=== PATIENT | female | born 1995 | race Caucasian/White ===

== ENCOUNTER 2018-04-28 13:45 | Emergency (ER) | payer MEDICAID ==
[~2018-04-28] VITALS: Ht 157.5 cm; Wt 58.2 kg
[2018-04-28 14:10] VITALS: Ht 157.5 cm; Wt 58.2 kg
[2018-04-28] MEDS ORDERED: ZOFRAN4 MG PO (14:11)
[2018-04-28 16:03] LABS: APPEARANCE HAZY (CLEAR); BILIRUBIN NEGATIVE (NEGATIVE); COLOR YELLOW (YELLOW); GLUCOSE NEGATIVE (NEGATIVE); KETONE NEGATIVE (NEGATIVE); NITRITE NEGATIVE (NEGATIVE); PROTEIN NEGATIVE (NEGATIVE); SPECIFIC GRAVITY 1.015 (1.005-1.020); UROBILINOGEN NORMAL (NORMAL)
[2018-04-28 16:05] LABS: BACTERIA FEW /hpf (NONE SEEN); EPITHELIAL CELLS 0-5 /hpf (0-5); RED CELLS - URINE OCC /hpf (0-5); WHITE CELLS - URINE 0-5 /hpf (0-5)
[2018-04-28] MEDS ORDERED: ZOFRAN ODT4 MG/UDTAB PO (17:47)
[2018-04-28] MEDS ORDERED: BUTALB-APAP-CA1 EACH PO (17:48)
[2018-04-28 18:09] VITALS: BP 123/89
== END 2018-04-28 18:11 | disposition home or self-care (01) ==
LOC: D.ER 13:45
PROVIDERS: Family Medicine
DX: O26.891 Other specified pregnancy related conditions, first trimester (principal); Z3A.00 Weeks of gestation of pregnancy not specified; G43.909 Migraine, unspecified, not intractable, without status migrainosus

== ENCOUNTER → 2018-05-07 14:09 | Outpatient (CLI) | payer MEDICAID ==
[2018-04-28 14:10] VITALS: BMI 23.4
[~2018-05-07 14:09] MED LIST: BUTALB-APAP-CA1 EACH PO; ZOFRAN ODT4 MG/UDTAB PO; ZOFRAN4 MG PO
== END | disposition home or self-care (01) ==
LOC: D.LDO 14:09
DX: O26.899 Other specified pregnancy related conditions, unspecified trimester (principal); Z3A.00 Weeks of gestation of pregnancy not specified; G43.909 Migraine, unspecified, not intractable, without status migrainosus

== ENCOUNTER → 2018-07-03 14:13 | Outpatient (CLI) | payer SELFPAY ==
[2018-04-28 14:10] VITALS: BMI 23.4
[2018-07-03 15:02] LABS: UDS - AMPHET NEGATIVE QUAL (NEGATIVE); UDS - BARB NEGATIVE QUAL (NEGATIVE); UDS - BENZO NEGATIVE QUAL (NEGATIVE); UDS - COCAINE NEGATIVE QUAL (NEGATIVE); UDS - OPIATE NEGATIVE QUAL (NEGATIVE); UDS - PCP NEGATIVE QUAL (NEGATIVE); UDS - THC NEGATIVE QUAL (NEGATIVE)
[2018-07-03 15:15] LABS: APPEARANCE CLEAR (CLEAR); BILIRUBIN NEGATIVE (NEGATIVE); COLOR YELLOW (YELLOW); GLUCOSE NEGATIVE (NEGATIVE); KETONE NEGATIVE (NEGATIVE); NITRITE NEGATIVE (NEGATIVE); PROTEIN NEGATIVE (NEGATIVE); UROBILINOGEN NORMAL (NORMAL)
[2018-07-03 15:17] LABS: BACTERIA FEW /hpf (NONE SEEN); EPITHELIAL CELLS OCC /hpf (0-5); WHITE CELLS - URINE OCC /hpf (0-5)
== END | disposition home or self-care (01) ==
LOC: D.LDO 14:13
PROVIDERS: Obstetrics & Gynecology
DX: O26.852 Spotting complicating pregnancy, second trimester (principal); Z3A.23 23 weeks gestation of pregnancy; M54.5 Low back pain

== ENCOUNTER → 2018-09-30 10:29 | Outpatient (CLI) | payer MEDICAID ==
[2018-04-28 14:10] VITALS: BMI 23.4
[~2018-09-30 10:29] MED LIST changes: +ALBUTEROL SULF8.5 GM INH; +AMBIEN10 MG PO; +FAMOTIDINE10 MG PO; +REGLAN5 MG PO; +TYLENOL W/CODEI1 TAB PO
[2018-09-30 11:42] LABS: APPEARANCE CLEAR (CLEAR); BILIRUBIN NEGATIVE (NEGATIVE); COLOR YELLOW (YELLOW); GLUCOSE NEGATIVE (NEGATIVE); KETONE NEGATIVE (NEGATIVE); NITRITE NEGATIVE (NEGATIVE); PROTEIN NEGATIVE (NEGATIVE); UROBILINOGEN NORMAL (NORMAL)
[2018-10-22 00:35] VITALS: BMI 30.1
== END | disposition home or self-care (01) ==
LOC: D.LDO 10:29
PROVIDERS: Obstetrics & Gynecology
DX: O62.9 Abnormality of forces of labor, unspecified (principal); Z3A.35 35 weeks gestation of pregnancy

== ENCOUNTER 2018-10-21 21:21 | Inpatient (IN) | payer MEDICAID ==
[~2018-10-21] VITALS: Ht 157.5 cm; Wt 74.8 kg
[~2018-10-21 21:21] MED LIST changes: -ALBUTEROL SULF8.5 GM INH; -AMBIEN10 MG PO; -FAMOTIDINE10 MG PO; -REGLAN5 MG PO
[2018-10-21 22:22] LABS: APPEARANCE CLEAR (CLEAR); BILIRUBIN NEGATIVE (NEGATIVE); COLOR YELLOW (YELLOW); GLUCOSE NEGATIVE (NEGATIVE); KETONE MODERATE mg/dL (NEGATIVE); NITRITE NEGATIVE (NEGATIVE); PROTEIN NEGATIVE (NEGATIVE); SPECIFIC GRAVITY 1.015 (1.005-1.020); UROBILINOGEN NORMAL (NORMAL)
[2018-10-21 22:23] LABS: EPITHELIAL CELLS 0-5 /hpf (0-5); WHITE CELLS - URINE 0-5 /hpf (0-5)
[2018-10-21 22:24] LABS: BACTERIA FEW /hpf (NONE SEEN)
[2018-10-21 23:40] LABS: UDS - AMPHET NEGATIVE QUAL (NEGATIVE); UDS - BARB POSITIVE QUAL (NEGATIVE); UDS - BENZO NEGATIVE QUAL (NEGATIVE); UDS - COCAINE NEGATIVE QUAL (NEGATIVE); UDS - OPIATE POSITIVE QUAL (NEGATIVE); UDS - PCP NEGATIVE QUAL (NEGATIVE); UDS - THC NEGATIVE QUAL (NEGATIVE)
[2018-10-21 23:56] LABS: HEMATOCRIT 34.4 % (36.0-48.0); HEMOGLOBIN 12.1 g/dL (12-16); MCH 30.9 pg (26.0-34.0); MCHC 35.2 g/dL (31.0-37.0); RBC 3.91 10x6/uL (4.00-5.40); RDW 13.4 % (11.5-14.5)
[2018-10-22] MEDS ORDERED: ALBUTEROL SULF8.5 GM INH (00:02)
[2018-10-22] MEDS ORDERED: AMBIEN10 MG PO (00:02)
[2018-10-22] MEDS ORDERED: REGLAN5 MG PO (00:04)
[2018-10-22] MEDS ORDERED: FAMOTIDINE10 MG PO (00:05)
[2018-10-22 00:35] VITALS: Ht 157.5 cm; Wt 74.8 kg
--- NOTE | 2018-10-22 17:44 | NUR ---
pt rings call light requesting to ambulate to br. this rn to room. pt reports all feeling has returned to lower extremeties. pt has full rom and control of left and right leg. pt oob w/out assistance and able to ambulate to br. pt able to void approx 100ml urine. no clots noted. pt requesting pain medication at this time.
--- NOTE | 2018-10-22 17:56 | NUR ---
report of pt's request for additional pain medication given to primary nurse maritza scott rn. jose plans to speak with md head of loss prevention for additional pain medication. warm blanket provided for pt to place on her abd at this time. no further needs at this time.
--- NOTE | 2018-10-22 18:30 | NUR ---
PT SITTING UP IN BED. VISITS WITH FAMILY. STATES WARM BLANKET HELPED WITH ABDOMINAL CRAMPING.
--- NOTE | 2018-10-22 19:15 | NUR ---
PT CALLS ON BATHROOM EMERGENCY LIGHT. THIS NURSE TO ROOM. PT SITTING ON COMMODE. PT MOTHER LEAVES BATHROOM AT THIS TIME. PT STATES "I FEEL LIKE I NEED TO POOP AND I CAN'T". STATES "IT STINGS WHEN I TRY TO GO". PT ENCOURAGED NOT TO STRAIN. PT STATES LAST BM FRIDAY. STATES HAS HAD PROBLEMS WITH CONSTIPATION. PT STATES VOIDED WITHOUT DIFFICULTY. PT STATES ABDOMINAL CRAMPING IMPROVED WITH WARM BLANKET TO ABDOMEN. PT BACK TO BED. PT PROVIDED WITH GRAPE JUICE AND ICE WATER. PT MOTHER REQUESTS DR SUN BE CALLED ABOUT GIVING PATIENT PAIN MEDICATION. PT AND MOTHER INFORMED THAT DR STRONG HYDRAULIC CHAIR ASSEMBLER AND WILL NOTIFY HIM OF PT MOTHER REQUEST.
--- NOTE | 2018-10-22 19:41 | NUR ---
PT BABY AT THIS TIME, INFORMED PT THAT I WILL COME BACK SHORTLY TO DO ASSESSMENT, PT VERBALIZES UNDERSTANDING, ADM TYLENOL AND TORADOL PER MD ORDERS, SEE EMAR, PT DENIES FURTHER NEEDS, FAMILY AT BEDSIDE
[2018-10-22 20:20] VITALS: BP 106/56
--- NOTE | 2018-10-22 20:20 | NUR ---
ASSESSMENT PER FLOW SHEET, VS OBTAINED, FF, ML, U/1, LIGHT BLEEDING NOTED WITH NO CLOTS, PT REPORTS FLATUS AND VOIDING WITH NO DIFFICULTY, PT DENIES NEEDS AT THIS TIME, FOB HOLDING BABY, FAMILY IN ROOM
--- NOTE | 2018-10-22 21:33 | NUR ---
PT HOLDING BABY, VISITING WITH FRIENDS AND FAMILY, PT REPORTS REMOVING NICOTINE PATCH, STATES "IT'S JUST NOT WORKING", CAN I GO OUT AND SMOKE?", INFORMED PT THAT SHE CANNOT GO OUT TO SMOKE, BUT I WILL CHECK WITH DR STRONG REGARDING A STRONGER PATCH, PT VERBALIZES UNDERSTANDING, DENIES FURTHER NEEDS
--- NOTE | 2018-10-22 22:13 | NUR ---
CALLS VIA CL, REQUESTS RN TO ROOM. TALISHA NEVAREZ NOTED TO PERIPAD FOLLOWING VOID. REQUESTS TO SHOWER, DENIES DIZZINESS AND LIGHTHEADEDNESS. REPORTS THAT SHE HAS BEEN UP MOVING IN ROOM. STATES THAT HER MOTHER WILL REMAIN IN ROOM WITH HER WHILE SHE SHOWERS. PIV TO LEFT WRIST WRAPPED. TOWELS AND CLEAN GOWN PROVIDED. DENIES ADDITIONAL NEEDS AT THIS TIME.
--- NOTE | 2018-10-22 23:02 | NUR ---
SPOKE WITH DR. STRONG REGARDING PT TAKING 7MG NICOTINE PATCH OFF AND PT REQUESTING STRONGER PATCH. ORDERS REC'D FOR 24 MG NICOTINE PATCH.
--- NOTE | 2018-10-22 23:26 | NUR ---
PT RESTING, AROUSES TO SOFT VERBAL STIMULATION, APPLIED NICOTINE PATCH TO RIGHT SHOULDER AREA PER PT'S REQUEST, PT DENIES FURTHER NEEDS OR PAIN, PT'S MOM ASLEEP ON COUCH
--- NOTE | 2018-10-23 00:44 | NUR ---
PT RESTING WITH EYES CLOSED, RESP QUIET, NO DISTRESS NOTED, LEFT UNDISTURBED AT THIS TIME, PT'S MOM ASLEEP ON COUCH
--- NOTE | 2018-10-23 01:19 | NUR ---
PT COMPLIANCE ENGINEER PRODUCTS LIGHT, VS MACHINE BEEPING, THIS RN TO ROOM, MACHINE TURNED OFF, ADM TYLENOL PER MD ORDERS, SEE EMAR, PT REQUESTED AND SERVED APPLE JUICE AND SANDWICH TRAY, PT DENIES FURTHER NEEDS, PT'S MOM AT BEDSIDE
--- NOTE | 2018-10-23 02:27 | NUR ---
PT RESTING WITH EYES CLOSED, RESP QUIET, NO DISTRESS NOTED, LEFT UNDISTURBED AT THIS TIME, PT'S MOM ASLEEP ON COUCH
--- NOTE | 2018-10-23 03:00 | NUR ---
REPORT TO FLORIDALMA VALENTINE RN
--- NOTE | 2018-10-23 03:55 | NUR ---
PATIENT LYING QUIETLY IN BED WITH EYES CLOSED. NO SIGNS OF DISTRESS NOTED.
--- NOTE | 2018-10-23 05:50 | NUR ---
PATIENT CHANGING AT THIS TIME. DENIES ANY NEEDS OR CONCERNS. NO SIGNS OF DISTRESS NOTED.
--- NOTE | 2018-10-23 06:40 | NUR ---
PATIENT STATES SHE IS NAUSEATED. PROVIDED PATIENT WITH SALTINE CRACKERS AND LEMON TANGIRNAQ SODA. PATIENT REQUESTS FOR FUNDUS TO BE MASSAGED. FUNDUS MASSAGED AT THIS TIME. FUNDUS MIDLINE, FIRM, AND 2 FB BELOW UMBILICUS. SCANT AMOUNT OF RUBRA LOCHIA NOTED ON PAD. PATIENT DENIES ANY FURTHER NEEDS. BED IN LOWEST POSTION, SIDE RAILS UP X2, C/L AND WATER WITHIN REACH.
[2018-10-23 06:49] LABS: BASOPHILS 0.1 % (0-2); EOSINOPHILS 1.1 % (0-7); HEMATOCRIT 31.3 % (36.0-48.0); HEMOGLOBIN 10.4 g/dL (12-16); IMMATURE GRANULOCYTES 0.5 % (0-5); LYMPHOCYTES 23.1 % (15-50); MCH 30.2 pg (26.0-34.0); MCHC 33.2 g/dL (31.0-37.0); MEAN PLATELET VOLUME 9.4 fL (7.4-10.4); MONOCYTES 8.2 % (2-11); RBC 3.44 10x6/uL (4.00-5.40); RDW 13.9 % (11.5-14.5)
[2018-10-23 07:16] LABS: PLATELET COUNT 151 10x3/uL (130-400)
[2018-10-23 07:29] LABS: RAPID PLASMA REAGIN Non Reactive (Non Reactive)
--- NOTE | 2018-10-23 07:32 | NUR ---
AFTER ROUNDING ON PT DR SUN GIVES ORDERS FOR PO REGLAN TO START NOW DUE TO PT COMPLAINT OF NAUSEA.
[2018-10-23 07:45] VITALS: BP 99/52
--- NOTE | 2018-10-23 09:25 | NUR ---
Jose Tanvi Sheryl 10/23/18 S: Patient states she doesn't think baby is getting enough. Her body isn't making milk and baby doesn't like the right breast. He will only latch on the left. States she is because she feels pressured by her mother. Patient verbalized she prefers to formula feed infant due to personal reasons. O: Patient sitting up in bed family members in room holding infant. We respect your decision to formula feed and are happy to support that decision. Please let the nursery staff no if you have any about how to feed with formula. A: CLC in room to talk with patient about . Patient verbalized she prefers to formula feed. P: None needed by CLC. Patient prefers to formula feed. Ariel Rosenberg, ROMARIO
--- NOTE | 2018-10-23 09:58 | OP ---
PATIENT NAME: BJORN LERMA MEDICAL RECORD: [id number] LOCATION:[id number] ADMISSION DATE:10/21/18 SURGEON: KYLER STANLEY MD DATE OF OPERATION: 10/22/2018 PREDELIVERY DIAGNOSIS: Active labor at 38 weeks and 6 days. POSTDELIVERY DIAGNOSIS: Mother delivered at 38 weeks and 6 days. PROCEDURE: Vaginal delivery. ATTENDING: Kyler Stanley MD ANESTHETIC: Continuous lumbar epidural. FINDINGS: Viable female infant with a tight nuchal cord cut on the perineum. The weight is still pending at the time of this dictation. Infant with Apgars 9 and 9. No lacerations. Placenta was delivered spontaneous and intact. ESTIMATED BLOOD LOSS: 300 cc. DISPOSITION: Mother and are recovered in the room. TRANSINT:[id number] Voice Confirmation ID: [id number] DOCUMENT ID: [id number] KYLER STANLEY MD at 0958 CC: [id number] DICTATION DATE: 10/22/18 1058 OPERATOR CAVITY PUMP: 10/22/18 1112 ADM IN [facility] [address] [place] [address]
--- NOTE | 2018-10-23 10:45 | NUR ---
towels taken and placed in bathroom per pt request to take a shower.
--- NOTE | 2018-10-23 13:10 | NUR ---
dietary called per pt request for Ranch dressing. Per Amalia would be brought to room.
--- NOTE | 2018-10-23 15:45 | NUR ---
MMR to right arm as scanned on emar.
--- NOTE | 2018-10-23 16:00 | NUR ---
Verbal and written discharge instructions gone over with pt stating her understanding and denies questions. secured in carrier and verified by nursery. Taken out to car by wheelchair home by private car with family.
== END 2018-10-23 16:30 | disposition home or self-care (01) | DRG 807 ==
LOC: D.LDO 21:21 → D.LD 22:10
PROVIDERS: ADMIT Obstetrics & Gynecology; ATTEND Obstetrics & Gynecology
PROC: 10E0XZZ Delivery of Products of Conception, External Approach (ICD-10-PCS; principal; 2018-10-22)
DX: O99.334 Smoking (tobacco) complicating childbirth (principal); Z37.0 Single live birth; Z3A.38 38 weeks gestation of pregnancy; O69.81X0 Labor and delivery complicated by cord around neck, without compression, not applicable or unspecified; O99.344 Other mental disorders complicating childbirth; F32.9 Major depressive disorder, single episode, unspecified

== ENCOUNTER → 2018-12-09 16:35 | Outpatient (CLI) | payer MEDICAID ==
[2018-10-22 00:35] VITALS: BMI 30.1
[~2018-12-09 16:35] MED LIST changes: +ALBUTEROL SULF8.5 GM INH; +AMBIEN10 MG PO; +FAMOTIDINE10 MG PO; +REGLAN5 MG PO
== END | disposition home or self-care (01) ==
LOC: D.RAD 16:35
PROVIDERS: ATTEND Emergency Medicine
DX: M53.3 Sacrococcygeal disorders, not elsewhere classified (principal)

== ENCOUNTER 2019-04-16 18:29 | Emergency (ER) | payer MEDICAID ==
[~2019-04-16] VITALS: Ht 157.5 cm; Wt 68.6 kg
[2019-04-16 18:39] VITALS: Ht 157.5 cm; Wt 68.6 kg
[2019-04-16] MEDS ORDERED: CIPRODEX OTIC7.5 ML RIGHT EAR (19:53)
[2019-04-16] MEDS ORDERED: TORADOL10 MG PO (19:54)
[2019-04-16 20:14] VITALS: BP 124/79
== END 2019-04-16 20:15 | disposition home or self-care (01) ==
LOC: D.ER 18:29
DX: H66.91 Otitis media, unspecified, right ear (principal); H60.501 Unspecified acute noninfective otitis externa, right ear; M26.609 Unspecified temporomandibular joint disorder, unspecified side; K02.9 Dental caries, unspecified